=== PATIENT | male | born 1990 | race Caucasian/White ===

== ENCOUNTER 2019-01-03 17:48 | Emergency (ER) | payer OTHER ==
[2019-01-03 18:52] LABS: APPEARANCE,URINE CLEAR; BILIRUBIN,URINE NEGATIVE (NEGATIVE); COLOR,URINE STRAW; GLUCOSE, URINE NEGATIVE (NEGATIVE); KETONES,URINE NEGATIVE (NEGATIVE); LEUKOCYTE ESTERASE,URINE NEGATIVE (NEGATIVE); NITRITE,URINE NEGATIVE (NEGATIVE); PROTEIN,URINE NEGATIVE (NEGATIVE); URINE SPECIFIC GRAVITY 1.004; UROBILINOGEN,URINE NEGATIVE mg/dL (<2.0)
--- NOTE | 2019-01-03 18:59 | ER Document Report ---
ED Medical Screen (RME) - General Chief Complaint: Testicular Pain Stated Complaint: TESTICULAR PAIN Time Seen by Provider: 01/03/19 18:06 TRAVEL OUTSIDE OF THE [place] IN LAST 30 DAYS: No - HPI Notes: 01/03/19 19:14 28 year old male to the ED with C/O bilateral testicular pain for over one month. States that the pain comes and goes but in the past several days, the pain has been worse. Denies being recently sexually active. States he felt a "lump" on the posterior aspect of his right testicle about 4 weeks ago. States he has not been seen before because his insurance has had poor coverage. Favian es any blunt trauma, dysuria, fevers, chills. Admits to bilateral testicular swelling. I performed a medical screening exam on patient. Have ordered US and labs. Will have patient further managed by mainside provider. - Related Data Allergies/Adverse Reactions: No Known Allergies Allergy (Unverified 01/03/19 17:50) Past Medical History - Social History Frequency of alcohol use: None Drug Abuse: None Physical Exam - Vital signs Vitals: Temp Pulse Resp BP Pulse Ox 98.6 F 80 20 140/83 H 97 01/03/19 17:56 01/03/19 17:56 01/03/19 17:56 01/03/19 17:56 01/03/19 17:56 Course - Vital Signs Vital signs: Temp Pulse Resp BP Pulse Ox 98.6 F 80 20 140/83 H 97 01/03/19 17:56 01/03/19 17:56 01/03/19 17:56 01/03/19 17:56 01/03/19 17:56
--- NOTE | 2019-01-03 19:01 | RADIOLOGY REPORT (SQ) ---
EXAM DESCRIPTION: U/S SCROTUM W/DOPPLER COMPLETED DATE/TIME: 01/03/2019 6:53 pm REASON FOR STUDY: testicular pain COMPARISON: None. TECHNIQUE: Static and realtime stone scale imaging of the scrotum and testes. Selected color Doppler and spectral images recorded to document blood flow. LIMITATIONS: None. FINDINGS: RIGHT: TESTICLE: Normal size. Normal echotexture. Normal blood flow. No mass. EPIDIDYMIS: Normal. HYDROCELE OR VARICOCELE: Small varicocele. HERNIA OR EXTRA-TESTICULAR MASS: No. OTHER: No other significant finding. LEFT: TESTICLE: Normal size. Normal echotexture. Normal blood flow. No mass. EPIDIDYMIS: Normal. HYDROCELE OR VARICOCELE: Small varicocele. HERNIA OR EXTRA-TESTICULAR MASS: No. OTHER: No other significant finding. IMPRESSION: No torsion. No masses within the testicles. TECHNICAL DOCUMENTATION: JOB ID: [id number] [employer]- All Rights Reserved Reading location - IP/workstation name: [email or web address]
--- NOTE | 2019-01-03 20:25 | ER Document Report ---
ED GI/ - General Chief Complaint: Testicular Pain Stated Complaint: TESTICULAR PAIN Time Seen by Provider: 01/03/19 20:25 Primary Care Provider: NAHUN MACK MD [PARUL DEY] - Follow up as needed [facility] [Primary Care Provider] - Follow up as needed Mode of Arrival: Ambulatory Information source: Patient Notes: HISTORY OF PRESENT ILLNESS: Patient is a 28-year-old male with no significant past medical history who presents with testicular pain for the past several days. Patient reports that it began on the left testicle, it is an aching sensation, denies known injury. A couple days later this progressed to involve the right testicle. He denies having similar symptoms in the past. Location: Bilateral testicles Onset: Several days ago Provocation: Unknown Quality: Aching Radiation: None Severity: Severe at worst, currently mild to moderate Timing: Constant Associated symptoms: No fevers or chills, no penile bleeding or discharge, no swelling of the scrotum, no injury REVIEW OF SYSTEMS: CONSTITUTIONAL : Denies fever or chills, no sweats. Denies recent illness. EENT: Denies eye, ear, throat, or mouth pain or symptoms. Denies nasal or sinus congestion. CARDIOVASCULAR: Denies chest pain. RESPIRATORY: Denies cough, cold, or chest congestion. Denies shortness of breath, difficulty breathing, or wheezing. GASTROINTESTINAL: Denies abdominal pain. Denies nausea, vomiting, or diarrhea. Denies constipation. GENITOURINARY: Positive for testicular pain. Denies difficulty urinating, painful urination, burning, frequency, or blood in urine. MUSCULOSKELETAL: Denies neck or back pain or joint pain or swelling. SKIN: Denies rash or skin lesions. HEMATOLOGIC : Denies easy bruising or bleeding. LYMPHATIC: Denies swollen, enlarged glands. NEUROLOGICAL: Denies altered mental status or loss of consciousness. Denies headache. Denies weakness or paralysis or loss of use of either side. Denies problems with gait or speech. Denies sensory or motor loss. PSYCHIATRIC: Denies anxiety or stress or depression. All other systems reviewed and negative. PHYSICAL EXAMINATION: GENERAL: Well-appearing, well-nourished and in no acute distress. HEAD: Atraumatic, normocephalic. No scalp deformity, depression, or crepitance. EYES: Pupils are 3 mm and equal/round/reactive to light, extraocular movements intact, sclera anicteric, conjunctiva are normal. ENT: Nares patent bilaterally, oropharynx clear without exudates or palatal petechia. Moist mucous membranes. No tonsil hypertrophy. NECK: Normal range of motion, supple without lymphadenopathy. LUNGS: Breath sounds present, equal, and clear to auscultation bilaterally. No wheezes, rales, or rhonchi. HEART: Regular rate and rhythm without murmurs, rubs, or gallops. 2+ peripheral pulses. Normal capillary refill. ABDOMEN: Soft, nontender, nondistended. Normoactive bowel sounds. No guarding, no rebound. No masses appreciated. BACK: Normal contour, no midline tenderness. Rectal exam deferred. GENITAL: Normal circumcised penis, no lesions. No erythema or edema of the scrotum. Mild tenderness to the right posterior testicle. EXTREMITIES: Normal range of motion, no pitting or edema. No cyanosis. NEUROLOGICAL: No focal neurological deficits. Moves all extremities spontaneously and on command. PSYCH: Normal mood, normal affect. No suicidal thoughts/ideations. No homicidal thoughts/ideations. No hallucinations. SKIN: Warm, dry, normal turgor, no rashes or lesions noted. ASSESSMENT AND PLAN: This patient is a 28-year-old male who presents with testicular pain that could represent epididymitis versus orchitis versus UTI versus varicocele versus cystocele. 1. Will obtain urine and scrotal ultrasound. 2. Will reassess. TRAVEL OUTSIDE OF THE [place] IN LAST 30 DAYS: No - HPI Patient complains to provider of: Testicular pain Onset: Last week Timing/Duration: Gradual Quality of pain: Achy, Cramping Severity at maximum: Severe Severity in ED: Moderate Pain Level: 2 Location: Left testicle, Right testicle Sexual history: Active Associated symptoms: None Exacerbated by: Movement, Walking Relieved by: Denies Similar symptoms previously: No Recently seen / treated by doctor: No - Related Data Allergies/Adverse Reactions: No Known Allergies Allergy (Unverified 01/03/19 17:50) Past Medical History - General Information source: Patient - Social History Smoking Status: Unknown if Ever Smoked Frequency of alcohol use: None Drug Abuse: None Lives with: Family Family History: Reviewed & Not Pertinent Patient has suicidal ideation: No Patient has homicidal ideation: No - Past Medical History Cardiac Medical History: Reports: None Pulmonary Medical History: Reports: None EENT Medical History: Reports: None Neurological Medical History: Reports: None Endocrine Medical History: Reports: None Renal/ Medical History: Reports: None Malignancy Medical History: Reports None GI Medical History: Reports: None Musculoskeletal Medical History: Reports None Skin Medical History: Reports None Psychiatric Medical History: Reports: None Traumatic Medical History: Reports: None Infectious Medical History: Reports: None Surgical Hx: Negative Past Surgical History: Reports: None - Immunizations Immunizations up to date: Yes Hx Diphtheria, Pertussis, Tetanus Vaccination: Yes Review of Systems - Review of Systems Constitutional: No symptoms reported EENT: No symptoms reported Cardiovascular: No symptoms reported Respiratory: No symptoms reported Gastrointestinal: No symptoms reported Genitourinary: No symptoms reported Male Genitourinary: See HPI, Testicular pain Musculoskeletal: No symptoms reported Skin: No symptoms reported Hematologic/Lymphatic: No symptoms reported Neurological/Psychological: No symptoms reported -: Yes All other systems reviewed and negative Physical Exam - Vital signs Vitals: Temp Pulse Resp BP Pulse Ox 98.6 F 80 20 140/83 H 97 01/03/19 17:56 01/03/19 17:56 01/03/19 17:56 01/03/19 17:56 01/03/19 17:56 Interpretation: Normal Course - Re-evaluation Re-evalutation: 01/03/19 22:09 Urine is negative and ultrasound shows no acute pathology other than a small hydrocele. Will discharge the patient home with strict return precautions and follow-up with urology. All results were explained to and discussed with the patient, and all questions addressed and answered. The patient voices both understanding and agreeing with the plan. - Vital Signs Vital signs: Temp Pulse Resp BP Pulse Ox 98.6 F 80 16 128/71 H 97 01/03/19 22:47 01/03/19 22:47 01/03/19 22:47 01/03/19 22:47 01/03/19 22:47 - Diagnostic Test Radiology reviewed: Image reviewed, Reports reviewed Discharge - Discharge Clinical Impression: Testicular pain Condition: Good Disposition: HOME, SELF-CARE Instructions: Testicular Pain ([facility]) Additional Instructions: You have been evaluated in the Emergency Department for testicular pain related to swelling. While here, you had an ultrasound that did not show any significant injuries and it is now safe to be discharged home. Please follow-up with your urologist as instructed in one week to be rechecked. Return to the Emergency Department if you experience worsening pain, swelling/redness of the scrotum, penile bleeding/discharge, or any other concerning symptoms. Prescriptions: Diclofenac Sodium 75 mg PO BID #30 tablet.dr Referrals: [facility] [Primary Care Provider] - Follow up as needed NAHUN MACK MD [BOOKKEEPER] - Follow up as needed Print Language: Greek
[2019-01-03] MEDS ORDERED: KETOROLAC TROMETHAMINE 60 MG/2 ML SDV IM ONE (20:57)
[2019-01-03 22:19] LABS: CHLAM PCR NOT DETECTED (NOT DETECT)
[2019-01-03 22:48] VITALS: BP 128/71
== END 2019-01-03 22:47 | disposition home or self-care (01) ==
LOC: ER 17:48
DX: N50.812 Left testicular pain (principal); N50.811 Right testicular pain
CPT/HCPCS: 76870; 81001; 87491; 87591; 93976; 99284